=== PATIENT | male | born 1990 | race Caucasian/White ===

== ENCOUNTER 2024-01-12 19:08 | Emergency (ER) | payer OTHER, SELFPAY ==
[2024-01-12 19:10] VITALS: BP 133/101
--- NOTE | 2024-01-12 19:35 | ED.GENMED ---
History of Present Illness
General
Chief Complaint: Overdose Intentional
Source: patient and family
Exam Limitations: none
Time Seen by Provider: 01/12/24 19:24
Nursing documentation reviewed up to this point in time: agreed with
History of Present Illness
History of Present Illness:
33-year-old male history of substance use and mental health issues, noncompliant with his meds brought in today snorted 5 bags of heroin and attempt to harm himself, mother states he has been acting odd, denies any other coingestions, has been
admitted to rehab and mental health facilities previously
Past History
Past History
ED Past Medical History: Psychiatric (Anxiety narcotic use)
ED Past Surgical History: Orthopedic (tendon repair LUE)
Patient has exhibited threatening behavior?: No
Social History
Tobacco: Smoker
Alcohol: None
Drug: Former user and Narcotics
Personal: Single
Living: with family
Employment: Employed
Family History
Family History: Other (Reviewed and noncontributory)
Review of Systems
Review of Systems
All Other Systems: Not applicable
Constitutional: Denies fever or fatigue
Psychiatric: Reports suicidal
Phy Exam
Physical Exam
Physical Exam:
Physical Exam
General: Disheveled 33 male
Neck: No jaundice pupils 4 mm OU
Heart: Regular
Lungs: no acute respiratory distress.
Neuro: alert and oriented. no focal neurological deficits
Skin: no rash
Psychiatric: Flat affect
Extremities: no edema.
Course
Orders/Labs/Results
Orders:
Orders
01/12/24 19:33
Crisis Consult Urgent
Reason for Consult: OD suicidal, mother at bedside
Cardiac Monitoring- Treatment ONCE
Urine Drug Abuse Screen Urgent
01/12/24 19:42
Acetaminophen Urgent
Alcohol Urgent
Complete Blood Count/With Diff Urgent
Comprehensive Metabolic Panel Urgent
Salicylate Urgent
01/12/24 19:45
Lorazepam [Ativan] 1 mg PO NOW STA
01/12/24 21:14
Lorazepam [Ativan] 1 mg PO NOW STA
Abnormal Lab Results
01/12/24
19:42
MCH 31.8 H pg
(27.0-31.0)
MPV 10.7 H fL
(7.4-10.4)
Absolute Neuts (auto) 7.9 H 10^3/uL
(1.4-6.5)
Absolute Monos (auto) 0.7 H 10^3/uL
(0.1-0.6)
Neutrophils % 76.4 H %
(42.2-75.2)
Lymphocytes % 16.0 L %
(20.5-51.1)
Carbon Dioxide 21 L mmol/L
(22-30)
BUN 29 H mg/dl
(9-20)
Glucose 115 H mg/dl
(70-99)
Albumin 5.4 H g/dl
(3.5-5.0)
Salicylates < 1.0 L mg/dl
(2.0-20.0)
Acetaminophen < 10 L ug/ml
(10-30)
01/12/24 19:42
01/12/24 19:42
Vital Signs
Initial and Last Documented VS:
Initial Vital Signs
Temp Pulse Resp BP Pulse Ox
98.9 F 122 24 133/101 98
01/12/24 19:10 01/12/24 19:10 01/12/24 19:10 01/12/24 19:10 01/12/24 19:10
Last Documented Vital Signs
Temp Pulse Resp BP Pulse Ox
98.9 F 117 17 149/101 93
01/12/24 19:10 01/12/24 20:48 01/12/24 20:48 01/12/24 20:48 01/12/24 20:45
MDM/Problems Addressed
Differential Diagnosis Includes:
Overdose depression mental health crisis
MDM/Problems Addressed:
Overdose
Chronic conditions affecting care: Psychiatric illness
Acute Exacerbation and/or Progression of Chronic Illness: Psychiatric illness
*Pulse Oximetry
Patient hypoxic: no
*[employer] Interpretation
Rate: normal
Interpretation: normal
Heart Rate: 88
Rhythm: sinus
*Critical Care Note
Total Time (30-74mins, 75-104mins- exclusive of procedures): Not Applicable
Update Note
Update Note:
Update vital signs are stable since 3 and half hours after snorting heroin pupils are non-small will monitor here check screening blood work crisis has been consulted family has been updated
Update labs are noted patient voluntary under 201
ED Attending Note
-
Portions of this chart may have been created with voice recognition software.� Occasional wrong word or��sound alike� substitutions may have occurred due to the inherent limitations of voice recognition software.
Discharge Plan
Departure
Patient Disposition: Psych Facility
Date of Disposition: 01/12/24
Time of Disposition: 20:12
Condition: Fair
Discharge Problem:
Suicidal overdose
Prescriptions:
No Action
lorazepam [Ativan] 0.5 mg tablet
0.5 mg PO BID PRN (Reason: anxiety) Qty: 10 0RF
nicotine 14 mg/24 hr Patch 24 Hour
14 mg transdermal DAILY Qty: 0 0RF
pantoprazole 40 mg Tablet,Delayed Release (Dr/Ec)
40 mg PO DAILY Qty: 30 0RF
folic acid 1 mg Tablet
1 mg PO DAILY Qty: 0 0RF
olanzapine 5 mg Tablet,Disintegrating
2.5 mg PO DAILY Qty: 30 0RF
olanzapine 5 mg Tablet,Disintegrating
5 mg PO HS Qty: 30 0RF
buprenorphine-naloxone [Suboxone] 8-2 mg film
1 film buccal DAILY Qty: 7 0RF
quetiapine [Seroquel] 300 mg tablet
300 mg PO HS Qty: 10 0RF
lorazepam [Ativan] 1 mg tablet
1 mg PO TID PRN (Reason: anxiety) Qty: 14 0RF
Interventions
Interventions:
*Risk Screen - Suicide Last Done: 01/12/24 19:32
*General Assessment Last Done: 01/12/24 19:32
*Neglect/Abuse Screening Last Done: 01/12/24 19:32
*ED COVID-19 Vaccine History Last Done: 01/12/24 19:32
ED- Cardiac Assessment Last Done: 01/12/24 19:29
ED- Neurological Assessment Last Done: 01/12/24 19:29
ED-Psychological Assessment Last Done: 01/12/24 19:29
ED- Pulmonary Assessment Last Done: 01/12/24 19:29
Discharge Date and Time
Print Language: ICELANDIC
[2024-01-12] MEDS: ATIVAN 1 MG PO ×2 (19:48→21:22)
[2024-01-12 19:55] LABS: % Basophils 0.4 % (0-2); % Eosinophils 0.4 % (0-6); % Immature Granulocytes 0.2 % (0-0.5); % Monocytes 6.6 % (1.7-9.3); % Neutrophils 76.4 % (42.2-75.2); Absolute Lymphocytes 1.6 10^3/uL (1.2-3.4); Absolute Monocytes 0.7 10^3/uL (0.1-0.6); Absolute Neutrophils 7.9 10^3/uL (1.4-6.5); Hemoglobin 17.4 g/dL (13.0-18.0); Mean Corp Hgb Conc. 36.3 g/dL (33.0-37.0); Mean Corpuscular Hgb 31.8 pg (27.0-31.0); Mean Corpuscular Volume 87.6 fL (80.0-94.0); Mean Platelet Volume 10.7 fL (7.4-10.4); Nucleated Red Blood Cells % 0 % (-); Platelet Count 321 10^3/uL (130-400); Red Blood Cell Count 5.48 10^6/uL (4.70-6.10); Red Cell Dist. Width 12.7 % (11.5-14.5); White Blood Cell Count 10.3 10^3/uL (4.8-10.8)
[2024-01-12 20:09] LABS: ALT (SGPT) 23 U/L (0-50); AST (SGOT) 29 U/L (17-59); Acetaminophen < 10 ug/ml (10-30); Albumin 5.4 g/dl (3.5-5.0); Alcohol None Detected; Alkaline Phosphatase 76 U/L (38-126); Blood Urea Nitrogen 29 mg/dl (9-20); Calcium 10.2 mg/dl (8.4-10.2); Carbon Dioxide 21 mmol/L (22-30); Chloride 105 mmol/L (98-107); Glucose 115 mg/dl (70-99); Salicylate < 1.0 mg/dl (2.0-20.0); Sodium 141 mmol/L (135-145); Total Bilirubin 1.3 mg/dl (0.2-1.3); Total Protein 8.2 g/dl (6.3-8.2); eGFR > 60.00
[2024-01-12 20:48] VITALS: BP 149/101
[2024-01-12 21:00] VITALS: BP 146/103
[2024-01-12 22:00] VITALS: BP 141/100
--- NOTE | 2024-01-12 23:00 | ED.GENMED ---
History of Present Illness
General
Chief Complaint: Overdose Intentional
Time Seen by Provider: 01/12/24 19:24
Past History
Past History
ED Past Medical History: Psychiatric (Anxiety narcotic use)
ED Past Surgical History: Orthopedic (tendon repair LUE)
Patient has exhibited threatening behavior?: No
Social History
Tobacco: Smoker
Alcohol: None
Drug: Former user and Narcotics
Personal: Single
Living: with family
Employment: Employed
Family History
Family History: Other (Reviewed and noncontributory)
Course
Orders/Labs/Results
Orders:
Orders
01/12/24 19:33
Crisis Consult Urgent
Reason for Consult: OD suicidal, mother at bedside
Cardiac Monitoring- Treatment ONCE
Urine Drug Abuse Screen Urgent
01/12/24 19:42
Acetaminophen Urgent
Alcohol Urgent
Complete Blood Count/With Diff Urgent
Comprehensive Metabolic Panel Urgent
Salicylate Urgent
01/12/24 19:45
Lorazepam [Ativan] 1 mg PO NOW STA
01/12/24 21:14
Lorazepam [Ativan] 1 mg PO NOW STA
Abnormal Lab Results
01/12/24
19:42
MCH 31.8 H pg
(27.0-31.0)
MPV 10.7 H fL
(7.4-10.4)
Absolute Neuts (auto) 7.9 H 10^3/uL
(1.4-6.5)
Absolute Monos (auto) 0.7 H 10^3/uL
(0.1-0.6)
Neutrophils % 76.4 H %
(42.2-75.2)
Lymphocytes % 16.0 L %
(20.5-51.1)
Carbon Dioxide 21 L mmol/L
(22-30)
BUN 29 H mg/dl
(9-20)
Glucose 115 H mg/dl
(70-99)
Albumin 5.4 H g/dl
(3.5-5.0)
Salicylates < 1.0 L mg/dl
(2.0-20.0)
Acetaminophen < 10 L ug/ml
(10-30)
01/12/24 19:42
01/12/24 19:42
Vital Signs
Initial and Last Documented VS:
Initial Vital Signs
Temp Pulse Resp BP Pulse Ox
98.9 F 122 24 133/101 98
01/12/24 19:10 01/12/24 19:10 01/12/24 19:10 01/12/24 19:10 01/12/24 19:10
Last Documented Vital Signs
Temp Pulse Resp BP Pulse Ox
98.9 F 112 14 141/100 94
01/12/24 19:10 01/12/24 22:45 01/12/24 22:45 01/12/24 22:00 01/12/24 22:45
Update Note
Update Note:
2300 patient stable. Patient is cleared for inpatient psychiatric care
ED Attending Note
-
Portions of this chart may have been created with voice recognition software.� Occasional wrong word or��sound alike� substitutions may have occurred due to the inherent limitations of voice recognition software.
Discharge Plan
Departure
Patient Disposition: Psych Facility
Date of Disposition: 01/12/24
Time of Disposition: 20:12
Condition: Fair
Discharge Problem:
Suicidal overdose
Prescriptions:
No Action
lorazepam [Ativan] 0.5 mg tablet
0.5 mg PO BID PRN (Reason: anxiety) Qty: 10 0RF
nicotine 14 mg/24 hr Patch 24 Hour
14 mg transdermal DAILY Qty: 0 0RF
pantoprazole 40 mg Tablet,Delayed Release (Dr/Ec)
40 mg PO DAILY Qty: 30 0RF
folic acid 1 mg Tablet
1 mg PO DAILY Qty: 0 0RF
olanzapine 5 mg Tablet,Disintegrating
2.5 mg PO DAILY Qty: 30 0RF
olanzapine 5 mg Tablet,Disintegrating
5 mg PO HS Qty: 30 0RF
buprenorphine-naloxone [Suboxone] 8-2 mg film
1 film buccal DAILY Qty: 7 0RF
quetiapine [Seroquel] 300 mg tablet
300 mg PO HS Qty: 10 0RF
lorazepam [Ativan] 1 mg tablet
1 mg PO TID PRN (Reason: anxiety) Qty: 14 0RF
Interventions
Interventions:
*Risk Screen - Suicide Last Done: 01/12/24 19:32
*General Assessment Last Done: 01/12/24 19:32
*Neglect/Abuse Screening Last Done: 01/12/24 19:32
*ED COVID-19 Vaccine History Last Done: 01/12/24 19:32
ED- Cardiac Assessment Last Done: 01/12/24 19:29
ED- Neurological Assessment Last Done: 01/12/24 19:29
ED-Psychological Assessment Last Done: 01/12/24 19:29
ED- Pulmonary Assessment Last Done: 01/12/24 19:29
Discharge Date and Time
Print Language: LITHUANIAN
[2024-01-13] MEDS: ATIVAN 2 MG IM (00:10)
[2024-01-13] MEDS: NICODERM TRANSDERMAL 14 MG TRANSDERM (00:44)
[2024-01-13] MEDS: HALDOL 5 MG IM (00:52)
--- NOTE | 2024-01-13 02:00 | ED.CRISIS ---
ED Crisis Note
ED Crisis Note
Subjective:
called to room as pt was becoming agitated. did not want to move rooms
Objective:
awake and alert. somewhat agitated.
Assessment/Plan:
Patient was verbally de-escalated and did agree to Haldol and Ativan. Nicotine patch. Transferred to room 35. Being evaluated by crisis
[2024-01-13 03:03] VITALS: BP 140/96
[2024-01-13 03:48] LABS: Amphetamines Positive (Negative); Barbiturates Negative (Negative); Benzodiazepines Positive (Negative); Buprenorphine Positive (Negative); Cocaine Negative (Negative); Marijuana Negative (Negative); Methadone Negative (Negative); Methamphetamines Positive (Negative); Opiates Negative (Negative); Phencyclidine Negative (Negative); Tricyclic Antidepressants Negative (Negative)
[2024-01-13 03:59] LABS: Fentanyl, Urine Positive (Negative)
[2024-01-13 07:23] VITALS: BP 126/90
[2024-01-13] MEDS: ATIVAN 1 MG PO (07:36)
[2024-01-13] MEDS: NICODERM TRANSDERMAL 21 MG TRANSDERM (10:13)
--- NOTE | 2024-01-13 10:30 | EDRN ---
I checked both arms and chest for nicoderm patch that was applied at midnight- I could not findthis. Pharmacy aware.
== END 2024-01-13 12:17 ==
LOC: EMR 19:08
PROVIDERS: EMERGENCY PHYSICIAN Emergency Medicine; FAMILY PHYSICIAN Emergency Medicine
DX: T50.902A Poisoning by unspecified drugs, medicaments and biological substances, intentional self-harm, initial encounter (principal); Y92.9 Unspecified place or not applicable
CPT/HCPCS: 99283; 96372; 80053; 80143; 80179; 80306; 80307; 82077; 85025

== ENCOUNTER 2024-01-18 15:16 | Emergency (ER) | payer OTHER, SELFPAY ==
[2024-01-18 15:19] VITALS: BP 162/113
[2024-01-18 15:37] LABS: % Basophils 0.6 % (0-2); % Eosinophils 3.3 % (0-6); % Immature Granulocytes 0.3 % (0-0.5); % Lymphocytes 17.6 % (20.5-51.1); % Monocytes 8.8 % (1.7-9.3); % Neutrophils 69.4 % (42.2-75.2); Absolute Eosinophils 0.2 10^3/uL (0-0.7); Absolute Lymphocytes 1.2 10^3/uL (1.2-3.4); Absolute Monocytes 0.6 10^3/uL (0.1-0.6); Absolute Neutrophils 4.9 10^3/uL (1.4-6.5); Hematocrit 39.1 % (39.0-52.0); Hemoglobin 14.5 g/dL (13.0-18.0); Mean Corp Hgb Conc. 37.1 g/dL (33.0-37.0); Mean Corpuscular Hgb 31.4 pg (27.0-31.0); Mean Corpuscular Volume 84.6 fL (80.0-94.0); Mean Platelet Volume 10.4 fL (7.4-10.4); Nucleated Red Blood Cells % 0 % (-); Platelet Count 266 10^3/uL (130-400); Red Blood Cell Count 4.62 10^6/uL (4.70-6.10)
[2024-01-18 15:59] LABS: Lactic Acid 0.7 mmol/L (0.7-2.0)
[2024-01-18 16:02] LABS: ALT (SGPT) 16 U/L (0-50); AST (SGOT) 28 U/L (17-59); Albumin 4.4 g/dl (3.5-5.0); Alkaline Phosphatase 67 U/L (38-126); Blood Urea Nitrogen 17 mg/dl (9-20); Calcium 9.2 mg/dl (8.4-10.2); Carbon Dioxide 26 mmol/L (22-30); Chloride 102 mmol/L (98-107); Glucose 129 mg/dl (70-99); Sodium 140 mmol/L (135-145); Total Bilirubin 0.9 mg/dl (0.2-1.3); Total Protein 7.1 g/dl (6.3-8.2); eGFR > 60.00
--- NOTE | 2024-01-18 16:17 | ED.GENMED ---
History of Present Illness
General
Chief Complaint: Skin Problem
Source: patient
Exam Limitations: none
Time Seen by Provider: 01/18/24 16:10
Nursing documentation reviewed up to this point in time: agreed with
Past History
Past History
ED Past Medical History: Psychiatric (Anxiety narcotic use)
ED Past Surgical History: Orthopedic (tendon repair LUE)
Patient has exhibited threatening behavior?: No
Social History
Tobacco: Smoker
Alcohol: None
Drug: Former user and Narcotics
Personal: Single
Living: with family
Employment: Employed
Family History
Family History: Other (Reviewed and noncontributory)
Course
Orders/Labs/Results
Orders:
Orders
01/18/24 15:31
CMP [Comprehensive Metabolic Panel] Urgent
Complete Blood Count/With Diff Urgent
Lactate Level [Lactic Acid] Urgent
Abnormal Lab Results
01/18/24
15:31
RBC 4.62 L 10^6/uL
(4.70-6.10)
MCH 31.4 H pg
(27.0-31.0)
MCHC 37.1 H g/dL
(33.0-37.0)
Lymphocytes % 17.6 L %
(20.5-51.1)
Glucose 129 H mg/dl
(70-99)
01/18/24 15:31
01/18/24 15:31
Vital Signs
Initial and Last Documented VS:
Initial Vital Signs
Temp Pulse Resp BP Pulse Ox
98.3 F 97 20 162/113 96
01/18/24 15:19 01/18/24 15:19 01/18/24 15:19 01/18/24 15:19 01/18/24 15:19
Last Documented Vital Signs
Temp Pulse Resp BP Pulse Ox
98.3 F 97 20 162/113 96
01/18/24 15:19 01/18/24 15:19 01/18/24 15:19 01/18/24 15:19 01/18/24 15:19
ED Attending Note
-
Portions of this chart may have been created with voice recognition software.� Occasional wrong word or��sound alike� substitutions may have occurred due to the inherent limitations of voice recognition software.
Discharge Plan
Departure
Prescriptions:
No Action
lorazepam [Ativan] 0.5 mg tablet
0.5 mg PO BID PRN (Reason: anxiety) Qty: 10 0RF
nicotine 14 mg/24 hr Patch 24 Hour
14 mg transdermal DAILY Qty: 0 0RF
pantoprazole 40 mg Tablet,Delayed Release (Dr/Ec)
40 mg PO DAILY Qty: 30 0RF
folic acid 1 mg Tablet
1 mg PO DAILY Qty: 0 0RF
olanzapine 5 mg Tablet,Disintegrating
2.5 mg PO DAILY Qty: 30 0RF
olanzapine 5 mg Tablet,Disintegrating
5 mg PO HS Qty: 30 0RF
buprenorphine-naloxone [Suboxone] 8-2 mg film
1 film buccal DAILY Qty: 7 0RF
quetiapine [Seroquel] 300 mg tablet
300 mg PO HS Qty: 10 0RF
lorazepam [Ativan] 1 mg tablet
1 mg PO TID PRN (Reason: anxiety) Qty: 14 0RF
Interventions
Interventions:
*Risk Screen - Suicide Last Done: 01/18/24 15:19
*General Assessment Last Done: 01/18/24 15:19
*Neglect/Abuse Screening Last Done: 01/18/24 15:19
Discharge Date and Time
Print Language: SETSWANA
[2024-01-18] MEDS: CLEOCIN 300 MG PO (17:35)
[2024-01-18] MEDS: TYLENOL 650 MG PO (17:36)
[2024-01-18] MEDS: MOTRIN 600 MG PO (17:37)
[2024-01-18 18:09] VITALS: BP 155/107
--- NOTE | 2024-01-18 18:14 | ED.GENMED ---
Addendum entered and electronically signed by Virgen Valverde PA-C 01/19/24 10:08:
this patient's father placed a consult via [facility] [place] for placement for rehab but pt did not wish to go to rehab.
he was discharged with resources.
Original Note:
History of Present Illness
General
Chief Complaint: Skin Problem
Source: patient
Exam Limitations: none
Time Seen by Provider: 01/18/24 16:10
Nursing documentation reviewed up to this point in time: agreed with
History of Present Illness
History of Present Illness:
33 Y/O m
h/o drug abuse
mental illness
was just at a psychiatric facility for a week and says 5 days ago he started with a bump in his dos santos mustache and it has gotten bigger, opened, and drained some pus
he has swollen upper lip
no fever/chills
no h/o MRSA
no vomiting
Past History
Past History
ED Past Medical History: Psychiatric (Anxiety narcotic use)
ED Past Surgical History: Orthopedic (tendon repair LUE)
Patient has exhibited threatening behavior?: No
Social History
Tobacco: Smoker
Alcohol: None
Drug: Former user and Narcotics
Personal: Single
Living: with family
Employment: Employed
Family History
Family History: Other (Reviewed and noncontributory)
Review of Systems
Review of Systems
Allergies reviewed?: Yes
All Other Systems: Not applicable
Phy Exam
Physical Exam
Physical Exam:
GENERAL: Alert , anxious
ENT: o/p clr, mmm.
no inner mouth lesions
CARDIAC: Regular rate and rhythm .
LUNGS: Clear breath sounds bilaterally, no acute respiratory distress, no wheezes/rales/rhonchi
NEUROLOGICAL: Alert and oriented, no focal neuro deficits
SKIN: Warm and dry,
pt has swelling pustule skin above right upper lip in the facial hair furuncle with some STS extending to the upper lip
in side mouth is normal
the induraction around the pustule is approx 3 cm x 2 cm
PSYCH: Normal and appropriate interaction.
Course
Orders/Labs/Results
Orders:
Orders
01/18/24 15:31
CMP [Comprehensive Metabolic Panel] Urgent
Complete Blood Count/With Diff Urgent
Lactate Level [Lactic Acid] Urgent
01/18/24 16:54
Clindamycin HCl [Cleocin] 300 mg PO NOW STA
01/18/24 17:28
Acetaminophen [Tylenol] 650 mg PO NOW STA
Ibuprofen [Motrin] 600 mg PO NOW STA
01/18/24 17:41
Wound Culture [Wound/Abscess/Other Culture] Urgent
ANNIE Source: Abscess
Specimen Description:
Date Specimen was Collected: 01/18/24
Time Specimen was Collected: 17:26
Abnormal Lab Results
01/18/24
15:31
RBC 4.62 L 10^6/uL
(4.70-6.10)
MCH 31.4 H pg
(27.0-31.0)
MCHC 37.1 H g/dL
(33.0-37.0)
Lymphocytes % 17.6 L %
(20.5-51.1)
Glucose 129 H mg/dl
(70-99)
01/18/24 15:31
01/18/24 15:31
Vital Signs
Initial and Last Documented VS:
Initial Vital Signs
Temp Pulse Resp BP Pulse Ox
98.3 F 97 20 162/113 96
01/18/24 15:19 01/18/24 15:19 01/18/24 15:19 01/18/24 15:19 01/18/24 15:19
Last Documented Vital Signs
Temp Pulse Resp BP Pulse Ox
98.3 F 82 20 155/107 96
01/18/24 15:19 01/18/24 18:09 01/18/24 15:19 01/18/24 18:09 01/18/24 15:19
Procedures
Incision/Drainage/Joint Aspiration
Right Face:
Anethesia: 1% Lidocaine with Epi
Preparation: cleaned with Betadine
Type of procedure: incise and drain
Nature of site: abscess
Description of abscess: less than 3cm
Loculations broken up: Yes
How much fluid was obtained?: small amount
Fluid description: purulent
Treatment: left open for drainage
MDM/Problems Addressed
Differential Diagnosis Includes:
facial abscess, cellulitis
MDM/Problems Addressed:
33 y/o M
drug abuse
psychiatric amdisssion recently
now with skin lesion within the hair of his mustache that appears like an abscess with cellulitis
mild to mod
no systemic sypmtoms
no immunecompromised state
draining with expression
opened the area up after anesthetizing with lidocaine with 11 blade approx 0.5 cm and squeezed pus out
cultured
clindamycin
appreciated labs
*Critical Care Note
Total Time (30-74mins, 75-104mins- exclusive of procedures): Not Applicable
ED Attending Note
-
Portions of this chart may have been created with voice recognition software.� Occasional wrong word or��sound alike� substitutions may have occurred due to the inherent limitations of voice recognition software.
Discharge Plan
Departure
Patient Disposition: Home (Routine Discharge)
Date of Disposition: 01/18/24
Time of Disposition: 17:27
Patient with high blood pressure during this ER visit?: Yes
Condition: Fair
Covid-19: Not Applicable
Discharge Problem:
Abscess of face
Instructions: BLOOD PRESSURE, Skin Abscess
Prescriptions:
New
clindamycin HCl 300 mg capsule
300 mg PO Q6H Qty: 40 0RF
No Action
lorazepam [Ativan] 0.5 mg tablet
0.5 mg PO BID PRN (Reason: anxiety) Qty: 10 0RF
nicotine 14 mg/24 hr Patch 24 Hour
14 mg transdermal DAILY Qty: 0 0RF
pantoprazole 40 mg Tablet,Delayed Release (Dr/Ec)
40 mg PO DAILY Qty: 30 0RF
folic acid 1 mg Tablet
1 mg PO DAILY Qty: 0 0RF
olanzapine 5 mg Tablet,Disintegrating
2.5 mg PO DAILY Qty: 30 0RF
olanzapine 5 mg Tablet,Disintegrating
5 mg PO HS Qty: 30 0RF
buprenorphine-naloxone [Suboxone] 8-2 mg film
1 film buccal DAILY Qty: 7 0RF
quetiapine [Seroquel] 300 mg tablet
300 mg PO HS Qty: 10 0RF
lorazepam [Ativan] 1 mg tablet
1 mg PO TID PRN (Reason: anxiety) Qty: 14 0RF
Referrals:
NONE,* [Family Provider] -
Activity Restrictions/Additional Instructions:
We sent a culture for the bacteria in the facial abscess. Please apply warm compresses several times a day to help this heal. Take clindamycin 4 times a day for 10 days.
Use a probiotic while on this medication. Monitor your symptoms closely for worsening swelling, fever, chills, pain etc. and return as needed. If the swelling gets worse he may need IV antibiotics or more extensive procedure.
Return for any concern
Interventions
Interventions:
*Risk Screen - Suicide Last Done: 01/18/24 15:19
*General Assessment Last Done: 01/18/24 15:19
*Neglect/Abuse Screening Last Done: 01/18/24 15:19
*Nursing Disposition Last Done: 01/18/24 18:09
ED-Skin Assessment Last Done: 09/03/24 18:09
Discharge Date and Time
Print Language: LAO
== END 2024-01-18 18:17 | disposition home or self-care (01) ==
LOC: EMR 15:16
PROVIDERS: Emergency Medicine; EMERGENCY PHYSICIAN Student in an Organized Health Care Education/Training Program
DX: L02.01 Cutaneous abscess of face (principal); F41.9 Anxiety disorder, unspecified; F17.200 Nicotine dependence, unspecified, uncomplicated
CPT/HCPCS: 99283; 10060; 80053; 83605; 85025; 87070; 87147; 87186; 87205

== ENCOUNTER 2024-01-19 09:59 | Emergency (ER) | payer OTHER, SELFPAY ==
[2024-01-19 10:00] VITALS: BP 161/100
--- NOTE | 2024-01-19 10:31 | ED.GENMED ---
History of Present Illness
<Virgen Valverde PA-C - Last Filed: 01/19/24 12:30>
General
Chief Complaint: Skin Problem
Source: patient
Exam Limitations: none
Time Seen by Provider: 01/19/24 10:14
Nursing documentation reviewed up to this point in time: agreed with
History of Present Illness
History of Present Illness:
33 y/o M with h/o mental illness, drug abuse
here yesterday for right upper lip area swelling/abscess within facial hair that was draining some purulence
it was indurated and swollen
pt had no systemic symptoms
he had normal wbc
the area where it was pustule was opened with a 11 blade by me and drained moderate amount of pus, left open without packing, encouraged warm compresses
given IV clinda
d/c home with oral clinda
pt says that he had 2 doses of clidna but today feels his jaw is locking from side to side and also that his right upper lip is numb
he has not had any fever, chills
no systemic symptoms
there is still some drainage with expression
the swellign does not look worse than yesterday
able to open jaw
no chronic jaw issues
Past History
<Virgen Valverde PA-C - Last Filed: 01/19/24 12:30>
Past History
ED Past Medical History: Psychiatric (Anxiety narcotic use)
ED Past Surgical History: Orthopedic (tendon repair LUE)
Patient has exhibited threatening behavior?: No
Social History
Tobacco: Smoker
Alcohol: None
Drug: Former user and Narcotics
Personal: Single
Living: with family
Employment: Employed
Family History
Family History: Other (Reviewed and noncontributory)
Review of Systems
<Virgen Valverde PA-C - Last Filed: 01/19/24 12:30>
Review of Systems
Allergies reviewed?: Yes
All Other Systems: Not applicable
Phy Exam
<Virgen Valverde PA-C - Last Filed: 01/19/24 12:30>
Physical Exam
Physical Exam:
GENERAL: Alert , in no apparent distress
EYE: pupils equal and reactive
NECK: Supple
ENT: o/p clr'
moderate
CARDIAC: Regular rate and rhythm .
LUNGS: Clear breath sounds bilaterally, no acute respiratory distress, no wheezes/rales/rhonchi
ABDOMEN: Soft, without focal tenderness, no r/g, no cvat, normal bowel sounds
NEUROLOGICAL: Alert and oriented, no focal neuro deficits
SKIN: Warm and dry, skin intact.
MUSCULOSKELETAL: No edema, well perfused. neg gregg's sign
PSYCH: Normal and appropriate interaction.
Course
<Virgen Valverde PA-C - Last Filed: 01/19/24 12:30>
Orders/Labs/Results
Orders:
Orders
01/19/24 12:21
Ibuprofen [Motrin] 600 mg PO NOW STA
Vital Signs
Initial and Last Documented VS:
Initial Vital Signs
Temp Pulse Resp BP Pulse Ox
36.8 C 95 16 161/100 98
01/19/24 10:00 01/19/24 10:00 01/19/24 10:00 01/19/24 10:00 01/19/24 10:00
Last Documented Vital Signs
Temp Pulse Resp BP Pulse Ox
36.8 C 95 16 161/100 98
01/19/24 10:00 01/19/24 10:00 01/19/24 10:00 01/19/24 10:00 01/19/24 10:00
<Henry Miles MD - Last Filed: 01/19/24 12:29>
Orders/Labs/Results
Orders:
Orders
01/19/24 12:21
Ibuprofen [Motrin] 600 mg PO NOW STA
Vital Signs
Initial and Last Documented VS:
Initial Vital Signs
Temp Pulse Resp BP Pulse Ox
36.8 C 95 16 161/100 98
01/19/24 10:00 01/19/24 10:00 01/19/24 10:00 01/19/24 10:00 01/19/24 10:00
Last Documented Vital Signs
Temp Pulse Resp BP Pulse Ox
36.8 C 95 16 161/100 98
01/19/24 10:00 01/19/24 10:00 01/19/24 10:00 01/19/24 10:00 01/19/24 10:00
Procedures
<Virgen Valverde PA-C - Last Filed: 01/19/24 12:30>
Incision/Drainage/Joint Aspiration
Right Face:
Anethesia: 1% Lidocaine
Preparation: cleaned with soap & water
Type of procedure: incise
Nature of site: abscess
Description of abscess: less than 3cm
Loculations broken up: Yes
How much fluid was obtained?: scant amount
Fluid description: purulent and bloody
Treatment: left open for drainage
<FAN Laureano Last Filed: 01/19/24 12:30>
MDM/Problems Addressed
Differential Diagnosis Includes:
FACIAL ABSCESS, CELLULITIXS
MDM/Problems Addressed:
33 y/o M
here yesterday for right skin abscess within the facial hair of mustache causing lip swelling
no fever
had normal labs
i&D completed and drained some purulence which was coultured
today he says he feels numb/tingling of upper lip and some pain in his jaw
to me the swelling is improved slightly
he has not been doing compresses
there is still induration and tenderness to the upper lip
seen by ed attending who recommended shaving some of the hair and then unroofing the scab and extending the incision which i did
i was able to express some out
left open
warm compresses encouraged
apreciate elevated bp
pt asking for pain meds, has addiction history, on suboxone
motrin ordered;
<Virgen Valverde PA-C - Last Filed: 01/19/24 12:30>
*Critical Care Note
Total Time (30-74mins, 75-104mins- exclusive of procedures): Not Applicable
ED Attending Note
<Vigren Valverde PA-C - Last Filed: 01/19/24 12:30>
-
Portions of this chart may have been created with voice recognition software.� Occasional wrong word or��sound alike� substitutions may have occurred due to the inherent limitations of voice recognition software.
<Henry Miles MD - Last Filed: 01/19/24 12:29>
ED Attending Note
Patient seen and examined by attending physician: Yes
ED Attending Note:
I have seen and evaluated the patient with a pruc-ni-sbao encounter. I have spoken to the advance practicer provider and involved in the medical history, the physical exam, medical decision making.
Evaluation and management service: agree unless noted differently below.
Results interpretation: agree unless noted differently below.
Focused HPI: 33-year-old male with history as documented presents to the emergency room today for increased swelling and pain in the right upper lip. Was seen yesterday found to have abscess on the right upper lip which was incised and drained; he
was given dose of IV antibiotics and discharged on clindamycin and has had 2 doses since discharge. He says today he is having increasing pain and swelling also having some tingling in the area. Came back to have the area reassessed. No fevers or
chills.
Physical exam: Awake alert not in distress. Hypertensive otherwise normal vitals. He has an abscess on the upper lip which is scabbed over, indurated warm and tender to the touch�punctate area of the incision remains open and there is ulysses
purulent drainage
Medical Decision Making: Patient returns with right upper lip abscess�small incision made yesterday to drain abscess�attempt to use smallest incision possible given cosmetic area. Unfortunately scabbed over and now increasingly swollen once again.
Area cleaned, scab removed and incision extended cruciate incision by PA. Continue oral antibiotics. Stable for discharge. Close outpatient follow-up.
Discharge Plan
Departure
Patient Disposition: Home (Routine Discharge)
Date of Disposition: 01/19/24
Time of Disposition: 12:21
Patient with high blood pressure during this ER visit?: Yes
Condition: Fair
Covid-19: Not Applicable
Discharge Problem:
Abscess of face
Instructions: BLOOD PRESSURE, Skin Abscess
Prescriptions:
No Action
lorazepam [Ativan] 0.5 mg tablet
0.5 mg PO BID PRN (Reason: anxiety) Qty: 10 0RF
nicotine 14 mg/24 hr Patch 24 Hour
14 mg transdermal DAILY Qty: 0 0RF
pantoprazole 40 mg Tablet,Delayed Release (Dr/Ec)
40 mg PO DAILY Qty: 30 0RF
folic acid 1 mg Tablet
1 mg PO DAILY Qty: 0 0RF
olanzapine 5 mg Tablet,Disintegrating
2.5 mg PO DAILY Qty: 30 0RF
olanzapine 5 mg Tablet,Disintegrating
5 mg PO HS Qty: 30 0RF
buprenorphine-naloxone [Suboxone] 8-2 mg film
1 film buccal DAILY Qty: 7 0RF
quetiapine [Seroquel] 300 mg tablet
300 mg PO HS Qty: 10 0RF
lorazepam [Ativan] 1 mg tablet
1 mg PO TID PRN (Reason: anxiety) Qty: 14 0RF
clindamycin HCl 300 mg capsule
300 mg PO Q6H Qty: 40 0RF
Referrals:
NONE,* [Family Provider] -
Activity Restrictions/Additional Instructions:
WARM SOAKS 4-5 TIMES A DAY FOR 10 MIN AT A TIME WITH WASH CLOTH AND WARM WATER
TRY TO SQUEEZE OUT WHAT YOU CAN
TAKE THE CLINDAMYCIN 4 TIMES A DAY
TAKE MOTRIN EVERY 8HORUS FOR INFLAMMATION AND SWELLING
RETURN FOR AWORSENING SWELLING OR NAY CONCENRS.
Interventions
Interventions:
*Risk Screen - Suicide Last Done: 01/19/24 10:32
*General Assessment Last Done: 01/19/24 10:00
*Neglect/Abuse Screening Last Done: 01/19/24 10:32
ED- Fall Risk Assessment Last Done: 01/19/24 11:37
*ED COVID-19 Vaccine History Last Done: 01/19/24 10:00
*Nursing Disposition Last Done: 01/19/24 12:29
ED-Skin Assessment Last Done: 01/19/24 11:31
Discharge Date and Time
Print Language: SCOTTISH
[2024-01-19 12:22] VITALS: BMI 24.4
[2024-01-19] MEDS: MOTRIN 600 MG PO (12:24)
[2024-01-19 12:25] VITALS: BP 163/126
== END 2024-01-19 12:31 | disposition home or self-care (01) ==
LOC: EMR 09:59
PROVIDERS: EMERGENCY PHYSICIAN Emergency Medicine
DX: L02.01 Cutaneous abscess of face (principal); F41.9 Anxiety disorder, unspecified; F17.200 Nicotine dependence, unspecified, uncomplicated
CPT/HCPCS: 99282; 10060

== ENCOUNTER 2024-01-23 00:52 | Emergency (ER) | payer OTHER, SELFPAY ==
[2024-01-23 00:54] VITALS: BP 160/116
[2024-01-23 01:03] VITALS: BMI 24.1
--- NOTE | 2024-01-23 01:04 | ED.GENMED ---
History of Present Illness
General
Chief Complaint: Crisis Evaluation
Source: patient
Exam Limitations: none
Time Seen by Provider: 01/23/24 00:57
History of Present Illness
History of Present Illness:
33-year-old male presents for medical evaluation and clearance for psychiatric treatment. He is here voluntarily for a 'mental crisis.' He is accompanied by his mother. Sent to emergency room from the crisis department for medical clearance. He
was here couple days ago for an abscess on his face. He has been taking clindamycin. He notes improved symptoms no diarrhea chest pain cough abdominal pain fever or shortness of breath.
Past History
Past History
ED Past Medical History: Psychiatric (Anxiety narcotic use)
ED Past Surgical History: Orthopedic (tendon repair LUE)
Patient has exhibited threatening behavior?: No
Social History
Tobacco: Smoker
Alcohol: None
Drug: Former user and Narcotics
Personal: Single
Living: with family
Employment: Employed
Family History
Family History: Other (Reviewed and noncontributory)
Phy Exam
Physical Exam
Physical Exam:
General: Well-appearing but slightly anxious male no acute respiratory distress
HEENT: Normocephalic atraumatic
Heart: Regular rate rhythm no murmurs
Lungs: Clear no wheeze
Psychiatric: Guarded, flat affect cooperative seems to have good thought process
Ext: No cyanosis.
Course
Orders/Labs/Results
Orders:
Orders
01/23/24 01:04
Lorazepam [Ativan] 1 mg PO NOW STA
01/23/24 01:11
Alcohol Urgent
Basic Metabolic Panel Urgent
COVID-19 Antigen Urgent
Source: Nasal Swab
Complete Blood Count/With Diff Urgent
Fentanyl, Urine Urgent
Urine Drug Abuse Screen Urgent
Date Specimen was Collected: 01/23/24
Time Specimen was Collected: 00:57
Abnormal Lab Results
01/23/24
01:11
Plt Count 402 H D 10^3/uL
(130-400)
Ur Buprenorphine Positive H
(Negative)
01/23/24 01:11
01/23/24 01:11
Vital Signs
Initial and Last Documented VS:
Initial Vital Signs
Temp Pulse Resp BP Pulse Ox
98 F 74 22 160/116 98
01/23/24 00:54 01/23/24 00:54 01/23/24 00:54 01/23/24 00:54 01/23/24 00:54
Last Documented Vital Signs
Temp Pulse Resp BP Pulse Ox
98 F 74 22 160/116 98
01/23/24 00:54 01/23/24 00:54 01/23/24 00:54 01/23/24 00:54 01/23/24 00:54
MDM/Problems Addressed
Differential Diagnosis Includes:
Patient is anxious. Will provide 1 mg of p.o. Ativan. Suspect anxiety is driving the blood pressure up. Will check labs and COVID test. Patient is stable otherwise. I suspect he would be able to be discharged back to crisis upon return of labs
*Critical Care Note
Total Time (30-74mins, 75-104mins- exclusive of procedures): Not Applicable
Update Note
Update Note:
Labs reviewed without significant finding. Patient was given Ativan to help his anxiety. At this point patient is medically clear for psychiatric disposition. He will be discharged back to [facility]
ED Attending Note
-
Portions of this chart may have been created with voice recognition software.� Occasional wrong word or��sound alike� substitutions may have occurred due to the inherent limitations of voice recognition software.
Discharge Plan
Departure
Patient Disposition: [facility]
Date of Disposition: 01/23/24
Time of Disposition: 01:58
Patient with high blood pressure during this ER visit?: No
Discharge Problem:
Medical clearance for psychiatric admission
Prescriptions:
No Action
lorazepam [Ativan] 0.5 mg tablet
0.5 mg PO BID PRN (Reason: anxiety) Qty: 10 0RF
nicotine 14 mg/24 hr Patch 24 Hour
14 mg transdermal DAILY Qty: 0 0RF
pantoprazole 40 mg Tablet,Delayed Release (Dr/Ec)
40 mg PO DAILY Qty: 30 0RF
folic acid 1 mg Tablet
1 mg PO DAILY Qty: 0 0RF
olanzapine 5 mg Tablet,Disintegrating
2.5 mg PO DAILY Qty: 30 0RF
olanzapine 5 mg Tablet,Disintegrating
5 mg PO HS Qty: 30 0RF
buprenorphine-naloxone [Suboxone] 8-2 mg film
1 film buccal DAILY Qty: 7 0RF
quetiapine [Seroquel] 300 mg tablet
300 mg PO HS Qty: 10 0RF
lorazepam [Ativan] 1 mg tablet
1 mg PO TID PRN (Reason: anxiety) Qty: 14 0RF
clindamycin HCl 300 mg capsule
300 mg PO Q6H Qty: 40 0RF
Activity Restrictions/Additional Instructions:
Please seek further treatment through [facility]. Return if needed otherwise.
Interventions
Interventions:
*Risk Screen - Suicide Last Done: 01/23/24 01:03
*General Assessment Last Done: 01/23/24 01:03
*Neglect/Abuse Screening Last Done: 01/23/24 01:03
*ED COVID-19 Vaccine History Last Done: 01/23/24 01:03
ED-Psychological Assessment Last Done: 01/23/24 01:05
Discharge Date and Time
Print Language: MALTESE
[2024-01-23] MEDS: ATIVAN 1 MG PO (01:15)
[2024-01-23 01:21] LABS: % Basophils 0.7 % (0-2); % Eosinophils 2.6 % (0-6); % Immature Granulocytes 0.2 % (0-0.5); % Lymphocytes 25.4 % (20.5-51.1); % Monocytes 4.8 % (1.7-9.3); % Neutrophils 66.3 % (42.2-75.2); Absolute Basophils 0.1 10^3/uL (0-0.2); Absolute Eosinophils 0.2 10^3/uL (0-0.7); Absolute Lymphocytes 2.1 10^3/uL (1.2-3.4); Absolute Monocytes 0.4 10^3/uL (0.1-0.6); Absolute Neutrophils 5.4 10^3/uL (1.4-6.5); Hematocrit 44.5 % (39.0-52.0); Mean Corpuscular Hgb 30.5 pg (27.0-31.0); Mean Corpuscular Volume 84.8 fL (80.0-94.0); Nucleated Red Blood Cells % 0 % (-); Platelet Count 402 10^3/uL (130-400); Red Blood Cell Count 5.25 10^6/uL (4.70-6.10); White Blood Cell Count 8.1 10^3/uL (4.8-10.8)
[2024-01-23 01:32] LABS: Amphetamines Negative (Negative); Barbiturates Negative (Negative); Benzodiazepines Negative (Negative); Buprenorphine Positive (Negative); Cocaine Negative (Negative); Marijuana Negative (Negative); Methadone Negative (Negative); Methamphetamines Negative (Negative); Opiates Negative (Negative); Phencyclidine Negative (Negative); Tricyclic Antidepressants Negative (Negative)
[2024-01-23 01:34] LABS: Blood Urea Nitrogen 16 mg/dl (9-20); Calcium 9.8 mg/dl (8.4-10.2); Carbon Dioxide 23 mmol/L (22-30); Chloride 104 mmol/L (98-107); Estimated Creatinine Clearance 114 ml/min; Glucose 98 mg/dl (70-99); Potassium 4.3 mmol/L (3.5-5.1); Sodium 142 mmol/L (135-145); eGFR > 60.00
[2024-01-23 01:35] LABS: Alcohol None Detected; COVID-19 Antigen Negative (Negative)
[2024-01-23 01:52] LABS: Fentanyl, Urine Negative (Negative)
[2024-01-23 02:04] VITALS: BP 106/79
== END 2024-01-23 02:15 ==
LOC: EMR 00:52
PROVIDERS: Physician Assistant; EMERGENCY PHYSICIAN Emergency Medicine
DX: Z13.39 Encounter for screening examination for other mental health and behavioral disorders (principal); F41.9 Anxiety disorder, unspecified; Z11.52 Encounter for screening for COVID-19; F17.200 Nicotine dependence, unspecified, uncomplicated
CPT/HCPCS: 99283; 80048; 80306; 80307; 82077; 85025; 87811

== ENCOUNTER 2024-04-20 16:39 | Emergency (ER) | payer OTHER, SELFPAY ==
[2024-04-20 16:40] VITALS: BP 163/112
--- NOTE | 2024-04-20 16:42 | ED.GENMED ---
ED Provider Triage
<Travis Miller PA-C - Last Filed: 04/20/24 16:48>
-
Patient seen by provider in Triage?: Seen in Triage
Attestation: A medical screening examination has been initiated by a qualified medical provider. Based on the assessment performed at this time, it has been determined that an emergent medical condition may exist and the patient has been informed
that further medical evaluation and possible additional diagnostic testing may be needed.
HPI: 34 year old male presenting for evaluation sweating/palpitations. Discharged from [facility] after being diagnosed with Major Depressive Disorder. This morning drank 3 cups of coffee and an energy drink. Since then has been having palpitations
and feeling unwell.
GENERAL: Alert , in no apparent distress
EYE: No visual abnormalities.
NECK: Trachea midline
ENT: No visible abnormalities.
LUNGS: No acute respiratory distress
NEUROLOGICAL: Alert and oriented
SKIN: Skin intact. No visible changes.
MUSCULOSKELETAL: Moving extremities normally
PSYCH: Normal and appropriate interaction.
This is a medical evaluation conducted in person to initiate diagnostic evaluation and provide initial therapeutics. Please see further documentation by the treating clinician.
History of Present Illness
<Travis Miller PA-C - Last Filed: 04/20/24 16:48>
General
Chief Complaint: Psychiatric Problem
Time Seen by Provider: 04/20/24 17:26
<Jorge A Choudhary PA-C - Last Filed: 04/20/24 17:41>
General
Source: patient
Exam Limitations: none
History of Present Illness
History of Present Illness:
34-year-old male with history of anxiety and depression presents with anxiety and difficulty sleeping. He states he is shaking. He wishes to speak with the crisis department. He is denying thoughts of harming himself or others. He really just
reiterates that he wants to talk to the crisis department. No other complaints at this time
Past History
<Travis Miller PA-C - Last Filed: 04/20/24 16:48>
Past History
ED Past Medical History: Psychiatric (Anxiety narcotic use)
ED Past Surgical History: Orthopedic (tendon repair LUE)
Patient has exhibited threatening behavior?: No
Social History
Tobacco: Smoker
Alcohol: None
Drug: Former user and Narcotics
Personal: Single
Living: with family
Employment: Employed
Family History
Family History: Other (Reviewed and noncontributory)
Phy Exam
<Jorge A Choudhary PA-C - Last Filed: 04/20/24 17:41>
Physical Exam
Physical Exam:
General: Well-appearing male no acute respiratory distress
Psychiatric exam: Flat affect admits anxiety and depression with tremors. He is denying thoughts of harming himself or others.
Heart: Regular rate and rhythm
Lungs: Clear
Course
<Travis Miller PA-C - Last Filed: 04/20/24 16:48>
Orders/Labs/Results
Orders:
Orders
04/20/24 16:47
Electrocardiogram (*1) Urgent
Reason for Study: Palpitations
EKG- Treatment ONCE
Basic Metabolic Panel Urgent
Complete Blood Count/With Diff Urgent
Vital Signs
Initial and Last Documented VS:
Initial Vital Signs
Temp Pulse Resp BP Pulse Ox
98.0 F 92 16 163/112 98
04/20/24 16:40 04/20/24 16:40 04/20/24 16:40 04/20/24 16:40 04/20/24 16:40
Last Documented Vital Signs
Temp Pulse Resp BP Pulse Ox
98.0 F 92 16 163/112 98
04/20/24 16:40 04/20/24 16:40 04/20/24 16:40 04/20/24 16:40 04/20/24 16:40
<Jorge A Choudhary PA-C - Last Filed: 04/20/24 17:41>
Orders/Labs/Results
Orders:
Orders
04/20/24 16:47
Electrocardiogram (*1) Urgent
Reason for Study: Palpitations
EKG- Treatment ONCE
Basic Metabolic Panel Urgent
Complete Blood Count/With Diff Urgent
Vital Signs
Initial and Last Documented VS:
Initial Vital Signs
Temp Pulse Resp BP Pulse Ox
98.0 F 92 16 163/112 98
04/20/24 16:40 04/20/24 16:40 04/20/24 16:40 04/20/24 16:40 04/20/24 16:40
Last Documented Vital Signs
Temp Pulse Resp BP Pulse Ox
98.0 F 92 16 163/112 98
04/20/24 16:40 04/20/24 16:40 04/20/24 16:40 04/20/24 16:40 04/20/24 16:40
<Jorge A Choudhary PA-C - Last Filed: 04/20/24 17:41>
MDM/Problems Addressed
Differential Diagnosis Includes:
Patient is alert cooperative not overtly intoxicated and requesting to speak with the crisis department. He is denying thoughts of harming himself or others. Will send him to the crisis department for further evaluation
<Jorge A Choudhary PA-C - Last Filed: 04/20/24 17:41>
*Critical Care Note
Total Time (30-74mins, 75-104mins- exclusive of procedures): Not Applicable
ED Attending Note
<Travis Miller PA-C - Last Filed: 04/20/24 16:48>
-
Portions of this chart may have been created with voice recognition software.� Occasional wrong word or��sound alike� substitutions may have occurred due to the inherent limitations of voice recognition software.
Discharge Plan
Departure
Patient Disposition: [facility]
Date of Disposition: 04/20/24
Time of Disposition: 17:40
Patient with high blood pressure during this ER visit?: No
Discharge Problem:
Anxiety
Prescriptions:
No Action
lorazepam [Ativan] 0.5 mg tablet
0.5 mg PO BID PRN (Reason: anxiety) Qty: 10 0RF
nicotine 14 mg/24 hr Patch 24 Hour
14 mg transdermal DAILY Qty: 0 0RF
pantoprazole 40 mg Tablet,Delayed Release (Dr/Ec)
40 mg PO DAILY Qty: 30 0RF
folic acid 1 mg Tablet
1 mg PO DAILY Qty: 0 0RF
olanzapine 5 mg Tablet,Disintegrating
2.5 mg PO DAILY Qty: 30 0RF
olanzapine 5 mg Tablet,Disintegrating
5 mg PO HS Qty: 30 0RF
buprenorphine-naloxone [Suboxone] 8-2 mg film
1 film buccal DAILY Qty: 7 0RF
quetiapine [Seroquel] 300 mg tablet
300 mg PO HS Qty: 10 0RF
lorazepam [Ativan] 1 mg tablet
1 mg PO TID PRN (Reason: anxiety) Qty: 14 0RF
clindamycin HCl 300 mg capsule
300 mg PO Q6H Qty: 40 0RF
Referrals:
UNKNOWN - PT DOES,NOT KNOW [Family Provider] -
Activity Restrictions/Additional Instructions:
Please seek further treatment at [facility] ([place], [place])
Interventions
Interventions:
*Risk Screen - Suicide Last Done: 04/20/24 16:40
*Neglect/Abuse Screening Last Done: 04/20/24 16:40
Discharge Date and Time
Print Language: DIVEHI
== END 2024-04-20 21:20 ==
LOC: EMR 16:39
PROVIDERS: EMERGENCY PHYSICIAN Emergency Medicine
DX: F41.9 Anxiety disorder, unspecified (principal); F32.9 Major depressive disorder, single episode, unspecified; F17.200 Nicotine dependence, unspecified, uncomplicated
CPT/HCPCS: 99283; 93005

== ENCOUNTER 2024-04-25 23:55 | Observation (INO) | payer OTHER, SELFPAY ==
[2024-04-25 18:18] VITALS: BP 123/88
[2024-04-25 18:36] LABS: % Basophils 0.7 % (0-2); % Eosinophils 2.8 % (0-6); % Immature Granulocytes 0.1 % (0-0.5); % Lymphocytes 26.5 % (20.5-51.1); % Monocytes 5.3 % (1.7-9.3); % Neutrophils 64.6 % (42.2-75.2); Absolute Basophils 0.1 10^3/uL (0-0.2); Absolute Eosinophils 0.2 10^3/uL (0-0.7); Absolute Lymphocytes 1.9 10^3/uL (1.2-3.4); Absolute Monocytes 0.4 10^3/uL (0.1-0.6); Absolute Neutrophils 4.6 10^3/uL (1.4-6.5); Hematocrit 46.6 % (39.0-52.0); Mean Corp Hgb Conc. 34.3 g/dL (33.0-37.0); Mean Corpuscular Volume 87.4 fL (80.0-94.0); Mean Platelet Volume 9.8 fL (7.4-10.4); Nucleated Red Blood Cells % 0 % (-); Platelet Count 265 10^3/uL (130-400); Red Blood Cell Count 5.33 10^6/uL (4.70-6.10); White Blood Cell Count 7.2 10^3/uL (4.8-10.8)
[2024-04-25 18:54] LABS: ALT (SGPT) 23 U/L (0-50); AST (SGOT) 27 U/L (17-59); Albumin 5.1 g/dl (3.5-5.0); Alkaline Phosphatase 57 U/L (38-126); Blood Urea Nitrogen 16 mg/dl (9-20); Calcium 9.7 mg/dl (8.4-10.2); Carbon Dioxide 23 mmol/L (22-30); Chloride 106 mmol/L (98-107); Glucose 100 mg/dl (70-99); Sodium 142 mmol/L (135-145); Total Bilirubin 0.6 mg/dl (0.2-1.3); Total Protein 7.9 g/dl (6.3-8.2); eGFR > 60.00
[2024-04-25 21:46] VITALS: BP 125/100
[2024-04-25] MEDS: LIDOCAINE 4% PATCH 1 PATCH TOPICAL (22:02)
[2024-04-25] MEDS: MOTRIN 400 MG PO (22:02)
--- NOTE | 2024-04-25 22:02 | ED.GENMED ---
History of Present Illness
General
Chief Complaint: Weakness
Source: patient
Exam Limitations: none
Time Seen by Provider: 04/25/24 20:11
Nursing documentation reviewed up to this point in time: agreed with
History of Present Illness
History of Present Illness:
Patient with history of anxiety and depression, discharged from inpatient treatment at [facility] 1 week ago after being admitted for 30 days, presents to ED secondary to upper extremity weakness with involuntary tremor, noted
shortly after being discharged from the hospital. Patient and his mother who is power of contracts attorney, are not sure if patient may be having withdrawal symptoms from discontinuing his psychiatric medications during recent hospitalization. Of note,
patient has had similar tremor in the past, thought to be secondary to some of the antipsychotic medications that he was taking. Denies difficulty with ambulation. Patient has had intermittent headache. Patient does also have chronic back and
neck pain. Denies fever or chills. Denies loss of appetite.
Past History
Past History
ED Past Medical History: Psychiatric (Anxiety narcotic use)
ED Past Surgical History: Orthopedic (tendon repair LUE)
Patient has exhibited threatening behavior?: No
Social History
Tobacco: Smoker
Alcohol: None
Drug: Former user and Narcotics
Personal: Single
Living: with family
Employment: Employed
Family History
Family History: Other (Reviewed and noncontributory)
Review of Systems
Review of Systems
Allergies reviewed?: Yes
All Other Systems: ROS reviewed and negative except as documented in HPI and ROS
Constitutional: Reports no symptoms
EENT: Reports no symptoms
Respiratory: Reports no symptoms
Cardiac: Reports no symptoms
ABD/GI: Reports no symptoms
: Reports no symptoms
Musculoskeletal: Reports no symptoms
Skin: Reports no symptoms
Neurological: Reports headache, weakness and other (tremor)
Phy Exam
Physical Exam
Physical Exam:
Physical Exam
General: no apparent distress, not acutely ill. afebrile
Head: nc/at. eomi
Neck: supple. no meningeal signs.
Heart: s1/s2 regular rate and rhythm, no murmur. equal radial pulses.
Lungs: no acute respiratory distress. clear bilaterally
Abdomen: normal bowel sounds. not tender.
Neuro: alert and oriented. no focal sensory/motor deficit. normal speech. resting, intermittent tremor of UE noted
Skin: no rash
Psychiatric: well kept. interactive and cooperative
Extremities: no edema. no calf tenderness.
Course
Orders/Labs/Results
Orders:
Orders
04/25/24 18:28
Complete Blood Count/With Diff Urgent
Comprehensive Metabolic Panel Urgent
04/25/24 21:57
Ibuprofen [Motrin] 400 mg PO NOW STA
Lidocaine [Lidocaine 4% Patch] 1 patch TOPICAL NOW STA
Apply Lidocaine patch(s) to:: back
04/25/24 22:04
CT Head W/o Iv Contrast Urgent
Comment:
Reason For Exam: UE weakness with involuntary movement
04/25/24 22:09
Lorazepam [Ativan] 1 mg PO NOW STA
04/25/24 23:00
Flush (0.9% Sodium Chloride) [Flush (Nss)] See Dose Instructions IV PER PROTOCOL
04/25/24 23:15
Nicotine [Nicoderm Transdermal] 21 mg TRANSDERM NOW STA
04/25/24 23:41
Admit/Transfer Patient As Directed
Co-Sign Provider:
Level of Care: Observation services
Assign to:: Medical/Surgical
Physician / Group: hospitalist
Diagnosis: weakness
PRN Pain Medication Management As Directed
May give lesser potent ordered pain med per pt: Yes
preference::
Protocol:: Medication orders for pain may be administered in a
manner that supports deferring to patient preference
when the pt is:
- Requesting an ordered lesser potent pain medication.
Least to most potent pain medications are defined
as: acetaminophen < NSAID < tramadol < opioids
(morphine, oxycodone, hydromorphone).
- Requesting a lesser dose of the same medication IF
ORDERED.
- Requesting a less intrusive route of administration
if both routes are prescribed by the provider (PO <
IV).
04/25/24 23:42
Code Status As Directed
Resuscitation Status: Full Code
04/26/24 01:00
Acetaminophen [Tylenol] 650 mg PO Q4HPRN PRN
Bisacodyl [Dulcolax] 10 mg RECTAL I83MGMB PRN
Docusate W/Senna [Senokot-S] 1 tablet PO BIDPRN PRN
Ibuprofen [Motrin] 400 mg PO Q6HPRN PRN
Polyethylene Glycol Powder [Miralax] 17 grams PO DAILYPRN PRN
04/26/24 01:00
Consult Notification Routine
Specialty to Notify: Neurology
Consult Notification Routine
Specialty to Notify: Psychiatry
NEUROLOGY CONSULT Routine
Consulting Provider: Ruchi Benoit
Was physician already notified: No
Reason for consult: tremors with alyson upper ext weakness
PSYCHIATRY CONSULT Routine
Consulting Provider: Lana Mcmillan
Was physician already notified: No
Reason for consult: recent d/c from inpt psych, med management
Urinalysis Reflex To Culture Routine
Urine Drug Abuse Screen Routine
MR Cervical Spine Without Routine
Comment:
Reason For Exam: alyson arm weakness, eval myelitis
Recent pill cam endoscopy?: No
MRI Brain [MR Brain Without Contrast] Routine
Comment:
Reason For Exam: altered mental status, weakness, eval ms
Recent pill cam endoscopy?: No
Activity As Directed
Activity Level: With Assistance
Vital Signs As Directed
Frequency: Per unit guidelines
DX Deep Vein Thrombosis Video Routine
04/26/24 Breakfast
Regular
At Your Request: Non-Participating
04/26/24 08:00
Venlafaxine Extended Release [Effexor Xr] 150 mg PO DAILY
Venlafaxine Extended Release [Effexor Xr] 75 mg PO DAILY
04/26/24 18:00
Enoxaparin Sodium [Lovenox] 40 mg SC QPM
04/26/24 22:00
Quetiapine Fumarate [Seroquel] 200 mg PO HS
Abnormal Lab Results
04/25/24
18:28
Glucose 100 H mg/dl
(70-99)
Albumin 5.1 H g/dl
(3.5-5.0)
04/25/24 18:28
04/25/24 18:28
Vital Signs
Initial and Last Documented VS:
Initial Vital Signs
Temp Pulse Resp BP Pulse Ox
98.0 F 104 16 123/88 97
04/25/24 18:18 04/25/24 18:18 04/25/24 18:18 04/25/24 18:18 04/25/24 18:18
Last Documented Vital Signs
Temp Pulse Resp BP Pulse Ox
97.6 F 56 18 138/91 98
04/26/24 01:07 04/26/24 01:07 04/26/24 01:07 04/26/24 01:07 04/26/24 01:33
MDM/Problems Addressed
MDM/Problems Addressed:
Patient with unclear etiology behind his presenting symptoms, i.e. upper extremity weakness along with involuntary tremor. Differential diagnosis include potential cervical spine involved versus medication effect versus withdrawal symptoms. CT
head: No acute findings. Patient will be admitted for further eval and treatment, including potential neurology and psychiatric evaluation, as well as MRI, cervical spine, if symptoms persist.
*Critical Care Note
Total Time (30-74mins, 75-104mins- exclusive of procedures): Not Applicable
ED Attending Note
-
Portions of this chart may have been created with voice recognition software.� Occasional wrong word or��sound alike� substitutions may have occurred due to the inherent limitations of voice recognition software.
Discharge Plan
Departure
Patient Disposition: Admit
Date of Disposition: 04/25/24
Time of Disposition: 23:05
Admit to: Med/Surg
Presentation/result/management discussed w/ accepting MD/DO: Hospitalist
Discharge Problem:
Involuntary movements, Weakness
Interventions
Interventions:
*Risk Screen - Suicide Last Done: 04/26/24 01:08
*General Assessment Last Done: 04/25/24 22:15
*Neglect/Abuse Screening Last Done: 04/25/24 22:14
ED- Fall Risk Assessment Last Done: 04/26/24 00:57
*ED COVID-19 Vaccine History Last Done: 04/26/24 01:08
*Nursing Disposition Last Done: 04/26/24 00:57
ED- Cardiac Assessment Last Done: 04/25/24 21:49
ED- Neurological Assessment Last Done: 04/25/24 21:20
ED-Psychological Assessment Last Done: 04/25/24 21:20
ED- Pulmonary Assessment Last Done: 04/25/24 21:49
Discharge Date and Time
Discharge Date/Time: 04/26/24 00:58
[2024-04-25] MEDS: ATIVAN 1 MG PO (22:12)
[2024-04-25 22:50] VITALS: BP 124/98
[2024-04-25] MEDS: NICODERM TRANSDERMAL 21 MG TRANSDERM (23:19)
--- NOTE | 2024-04-25 23:30 | HPS.HSE ---
Family Physician
-
Family Physician: NO INTERVIEW UNKNOWN
Chief Complaint
-
Bilateral upper extremity weakness and tremors, behavioral changes
History of Present Illness
This is a 34-year-old male with past medical history of anxiety depression and psychotic episodes who was discharged from inpatient [facility] 2 weeks ago and presents to the emergency department with 1 week of bilateral upper extremity tremors weakness
and decreased responsiveness per family.
Patient and family reported he has spent about 3 months at inpatient [facility]. During that time it had his medications tailored and changed. Specifically they reported that he was previously on Depakote and Clozaril which were discontinued and has
been on venlafaxine and at bedtime Seroquel about 2 weeks prior to his discharge from the inpatient [facility]. At time of discharge there were no apparent neurological abnormalities. And patient appeared to have improved in terms of mentation,
minimization of hallucinations. Since discharge the patient has otherwise been in usual state of health but developed this bilateral upper extremity tremors 1 week ago. He denied any numbness or tingling. He reports weakness and this is
demonstrated by inability to put on close over his head or put on his socks. He denies any new back pain. He denies any neck pain or stiffness. He has been no fevers or chills. He denies any urinary symptoms. He reports that he has been
compliant with his medications and denies any ingestions or recreational drugs.
In the emergency department, he was hemodynamically stable with a blood pressure of 125/100 pulse of 100 and oxygen saturation of 97% on room air. He was afebrile. CBC was completely within normal limits. LFTs BUN/creatinine and electrolytes were
all normal. CT of the head shows no acute abnormalities.
Medical History
Past Medical History
Past Medical History: Reports Other
Additional Past Medical History:
Depression anxiety
Psychotic episodes
Past Surgical History: Reports None
Social History
Tobacco: Former Smoker
Alcohol: None
Drug: None
Personal:
Living: Other ([facility])
Employment: Not Employed
Family History
Family History: Not pertinent
Allergies / Home Medications
Allergies reflects when Allergies were last updated in [employer].
Home Medications with original date entered in [employer]
Allergy/Medication List:
Allergies
Allergy/AdvReac Type Severity Reaction Status Date / Time
No Known Allergies Allergy Verified 04/25/24 18:22
Home Medications
quetiapine 200 mg tablet (Seroquel) 200 mg PO HS 04/25/24
venlafaxine 150 mg capsule,extended release 24 hr 150 mg PO DAILY 04/25/24
venlafaxine 75 mg capsule,extended release 24 hr 75 mg PO DAILY 04/25/24
Review of Systems
-
History Source: Patient and Family
Constitutional: Reports No Symptoms
EENT: Reports No Symptoms
Respiratory: Reports No Symptoms
Cardiac: Reports No Symptoms
Abdomen/GI: Reports No Symptoms
: Reports No Symptoms
Musculoskeletal: Reports No Symptoms
Skin: Reports No Symptoms
Neurological: Reports Weakness and Other (tremors)
Endocrine: Reports No Symptoms
Hematologic/Lymphatic: Reports No Symptoms
Psych: Reports No Symptoms
Physical Exam
Vital Signs
Vital Signs
Temp Pulse Resp BP Pulse Ox
98.0 F 104 16 125/100 97
04/25/24 18:18 04/25/24 18:18 04/25/24 18:18 04/25/24 21:46 04/25/24 18:18
Physical Exam
General: Well Developed, Well Nourished, No Apparent Distress and Comfortable
HEENT: NormoCephalic, Anicteric, Moist mucous membranes and Atraumatic
Respiratory: Clear
Cardiac: S1/S2 and Regular Rhythm
Breast: Deferred by me
GI: Soft, Non Tender, Non Distended and Normal Bowel Sounds
Rectal: Deferred by Provider
Genito-urinary: Deferred by me
Musculoskeletal: No Clubbing, No Cyanosis and No Edema
Skin: Warm
Neuro: AO x 3, No Motor Deficits, Cranial Nerves Intact, No Sensory Deficits and Tremors (bilateral upper extremity tremor, intermittent, noted with raised hands, no significant change with pointing.)
Hematologic/Lymphatic: No Lymphadenopathy
Psych: Calm
Laboratory Results
-
04/25/24 18:28
04/25/24 18:
Laboratory Results
Total Bilirubin 0.6 mg/dl (0.2-1.3) 04/25/24 18:28
AST 27 U/L (17-59) 04/25/24 18:
ALT 23 U/L (0-50) 04/25/24 18:
Alkaline Phosphatase 57 U/L (38-126) 04/25/24 18:
Data Reviewed
-
CT Scan: Report Reviewed by me
Lab Data: Labs Reviewed by me
Old Records: Reviewed
Impression/Plan
-
IMPRESSION:
Patient w/ h/o psychosis and recent inpatient psychiatric hospital stay with med changes presents to Ed with bilateral upper extremity tremors and weakness. My exam shows low amplitude tremors intermittently but no weakness. No focal tenderness of
the cervical or thoracic spine. Sensation, cerebellar testing intact. Alert and oriented. Has some slow movements without rigidity. No stiffeness. Currently denies hallucinations and elusions.
PLAN:
1. Tremors - Non-specific but possibly medication related. He was discontinued most recently on benzos/clozaril a few weeks ago and has been on quetiapine and venlafaxine. Possible side effect.
- admit to med/surg
- mri brain c-spine
- add on u/a urine tox
- will continue meds for now pending consults to avoid triggering an acute psychotic episode
- neuroconsult
2. Psych -
- med management consultation in setting of tremors on current meds
DVT PPX - lovenox sq
Code status - Full code
[2024-04-26 01:07] VITALS: BP 138/91
[2024-04-26 07:30] VITALS: BP 139/95
[2024-04-26] MEDS: EFFEXOR XR 75 MG PO (07:50)
[2024-04-26] MEDS: EFFEXOR XR 150 MG PO (07:50)
--- NOTE | 2024-04-26 09:00 | W.PN.NEURO.1 ---
Today's Communication / Plan
-
.
Subjective/Objective
Subjective Data
Date of Service: April 26, 2024
Requesting physician:Loreto Valerio MD
Reason for consultation: Tremors of upper extremities
Neurology Consultation Note.
HPI: This is a 34-year-old man who presented to [facility] on 04/25/2024 with a fall and abnormal movements.
Mr. Sinha reportedly has had intermittent action hand tremor, which began approximately two years ago. The tremors are predominantly in the hands, but the patient also reports difficulty with tasks involving eating, writing and ability to use a mouse
effectively.
The patient reports that his tremors worsen with anxiety. He has had worsening of his balance with no loss of consciousness or head trauma leading him to seek medical attention. The patient was reportedly switched from Clozaril to Seroquel around 2
weeks ago.
The patient consumes one cup of coffee daily .
ER VS: 123/88, 104, afebrile.
EKG: Not available.
PDMP:Buprenorphine-Nalox 8-2mg 28 filled in on 02/02/2024, 12/10/2023
Labs: Glucose�100, normal WBCs, creatinine, platelets, sodium, LFTs, urine tox�negative, CK, TFTs, ammonia�normal
Brain MRI wo [facility](04/26/2024)-normal
C spine MRI-no evidence of intrinsic or extrinsic myelopathy, T3-4 posterior central disc protrusion, with effacement of anterior subarachnoid space.
PMH: polysubstance addiction, JAYLYN
PSH: L arm ORIF
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
FH:no FH of tremors
All: NKDA
ROS:Constitutional: Negative. Negative for chills, fever and unexpected weight change.
HENT: Negative for ear pain, hearing loss, tinnitus and trouble swallowing.
Eyes: Negative. Negative for photophobia, pain and visual disturbance.
Respiratory: Negative for cough, choking and shortness of breath.
Cardiovascular: Negative for chest pain, palpitations and leg swelling.
Gastrointestinal: Negative for abdominal pain and vomiting.
Endocrine: Negative. Negative for cold intolerance.
Genitourinary: Negative for dysuria, flank pain and urgency.
Musculoskeletal: Positive for intermittent back pain
Skin: Negative for rash.
Allergic/Immunologic: Negative. Negative for immunocompromised state.
Neurological: Positive for hand tremor, imbalance.
Psychiatric/Behavioral: Negative for behavioral problems, confusion and hallucinations.
General: Well developed. In no acute distress.
Cardio: Regular rate and rhythm without murmur. Extremities are without cyanosis or edema.
Neuro:
Mental Status: Alert, oriented to person, place, and date. Impaired attention. Minimal eye contact. Good fund of knowledge. Follows complex requests across the midline. Comprehension, naming, and repetition intact.
Cranial Nerves: . Pupils are equally round and reactive to light. EOMs full. Visual yeager full to confrontation. No ptosis. No nystagmus. V1-V3 intact to light touch and pinprick bilaterally, symmetric. Face symmetric. Normal hearing AU.
The palate elevated well. SCMs and traps 5/5. Tongue midline. No dysarthria.
Motor: Increased motor tone with augmentation right greater than left. No pronator or arm drift. Strength 5/5 throughout. No clonus.
Reflexes: 2+ throughout the upper extremities and knees. Plantar responses flexor bilaterally.
Sensory: Normal proprioception at the toes
Coordination: Bilateral postural and action hand tremor. No dysmetria.
Gait: Normal stance, stride, reduced arm swing.
Assessment and Plan:
I. Worsening of chronic action hand tremor.
II. 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
III. T3-4 posterior central disc protrusion, with effacement of anterior subarachnoid space
IV. Opiate use disorder, severe in remission
-Fall precautions
-Avoid dopamine blocking medications
-nicotine patch
-May consider starting Inderal 60 mg daily for symptomatic tremor relief with close monitoring of mood symptoms
-Please check copper, ceruloplasmin, heavy metal screen
-Outpatient neurology follow-up in 1 to 2 weeks
I personally reviewed all radiology and labs along with past medical records pertinent to current medical problems. Total time spent in patient care is 60 minutes.
Thank you for allowing us to participate in the care of this patient. Please do not hesitate to contact us with any questions or concerns.
Objective Data
Vital Signs
Temp Pulse Resp BP Pulse Ox
36.7 C 90 14 139/95 97
04/26/24 07:30 04/26/24 07:30 04/26/24 07:30 04/26/24 07:30 04/26/24 07:30
Lab Results
04/25/24 18:28
04/25/24 18:28
Sodium 142 mmol/L (135-145) 04/25/24 18:28
Potassium 4.0 mmol/L (3.5-5.1) 04/25/24 18:28
BUN 16 mg/dl (9-20) 04/25/24 18:28
Glucose 100 mg/dl (70-99) H 04/25/24 18:28
Calcium 9.7 mg/dl (8.4-10.2) 04/25/24 18:28
Patient Allergies
No Known Allergies Allergy (Verified 04/25/24 18:22)
Vital Signs and Labs
-
Vital Signs and Labs:
Vital Signs
Temp Pulse Resp BP Pulse Ox
36.7 C 90 14 139/95 97
04/26/24 07:30 04/26/24 07:30 04/26/24 07:30 04/26/24 07:30 04/26/24 07:30
Lab Results
04/25/24 18:28
04/25/24 18:28
Sodium 142 mmol/L (135-145) 04/25/24 18:28
Potassium 4.0 mmol/L (3.5-5.1) 04/25/24 18:28
BUN 16 mg/dl (9-20) 04/25/24 18:28
Glucose 100 mg/dl (70-99) H 04/25/24 18:28
Calcium 9.7 mg/dl (8.4-10.2) 04/25/24 18:28
Medications
-
Medications:
Generic Name Dose Route Start Last Admin
Trade Name Freq PRN Reason Stop Dose Admin
Acetaminophen 650 mg 04/26/24 01:00
Acetaminophen 325 Mg Tablet PO 05/24/24 00:59
Q4HPRN PRN
mild pain/GARCÍA/temp> 100.4F
Bisacodyl 10 mg 04/26/24 01:00
Bisacodyl 10 Mg Rectal Suppository RECTAL 05/24/24 00:59
[id number] PRN
constipation
Enoxaparin Sodium 40 mg 04/26/24 18:00
Enoxaparin Sodium 40 Mg/0.4 Ml Syringe SC 05/24/24 17:59
QPM ROBERTO
Ibuprofen 400 mg 04/26/24 01:00
Ibuprofen 400 Mg Tablet PO 05/24/24 00:59
Q6HPRN PRN
mild pain
Polyethylene Glycol 17 grams 04/26/24 01:00
Polyethylene Glycol Powder 17 Grams Packet PO 05/24/24 00:59
DAILYPRN PRN
constipation
Quetiapine Fumarate 200 mg 04/26/24 22:00
Quetiapine 100 Mg Tablet PO 05/24/24 21:59
HS ROBERTO
Senna/Docusate Sodium 1 tablet 04/26/24 01:00
Docusate W/Senna (Kathie-Colace) Tablet PO 05/24/24 00:59
BIDPRN PRN
constipation
Sodium Chloride 0 flush 04/25/24 23:00
Sodium Chloride 0.9% (Flush) Syringe IV 05/23/24 22:59
PER PROTOCOL ROBERTO
Venlafaxine HCl 75 mg 04/26/24 08:00 04/26/24 07:50
Venlafaxine 75 Mg Extended Release Capsule PO 05/24/24 07:59 75 mg
DAILY ROBERTO Administration
Venlafaxine HCl 150 mg 04/26/24 08:00 04/26/24 07:50
Venlafaxine 150 Mg Extended Release Capsule PO 05/24/24 07:59 150 mg
DAILY ROBERTO Administration
Home Medications
-
Home Medications
quetiapine 200 mg tablet (Seroquel) 200 mg PO HS 04/25/24
venlafaxine 150 mg capsule,extended release 24 hr 150 mg PO DAILY 04/25/24
venlafaxine 75 mg capsule,extended release 24 hr 75 mg PO DAILY 04/25/24
[2024-04-26 09:50] LABS: Ammonia 25 umol/L (9-30)
[2024-04-26 10:46] LABS: Amphetamines Negative (Negative); Barbiturates Negative (Negative); Benzodiazepines Negative (Negative); Buprenorphine Negative (Negative); Cocaine Negative (Negative); Marijuana Negative (Negative); Methadone Negative (Negative); Methamphetamines Negative (Negative); Opiates Negative (Negative); Phencyclidine Negative (Negative); Tricyclic Antidepressants Negative (Negative)
[2024-04-26 10:51] LABS: Urine Albumin Negative (Neg - Trace); Urine Bilirubin Negative (Negative); Urine Character Clear (Clear); Urine Color Yellow; Urine Glucose Negative (Negative); Urine Ketone Negative (Negative); Urine Leukocyte Negative (Negative); Urine Nitrite Negative (Negative); Urine Occult Blood Negative (Negative); Urine Urobilinogen Negative (Neg - 1+)
[2024-04-26] MEDS: ATIVAN 1 MG PO (10:53)
--- NOTE | 2024-04-26 11:09 | W.PN.HOSP.TC ---
Addendum entered and electronically signed by Leodan Duffy DO 04/26/24 16:20:
Brain and cervical spine MRI unrevealing as to cause of tremor.
Suspect psychiatric induced tremors.
Medically stable for discharge home today with outpatient follow-up with Roseline Nicole for [facility].
Instructions provided to patient and his mother.
I spoke with Dr. Blum and she will ask Roseline Nicole to touch base with patient's mother tomorrow for follow-up appointment.
Original Note:
Today's Communication/Plan
-
Continue current care
Assessment / Plan
Assessment / Plan
Gen-AAOx3, NAD
HEENT-NC, AT, anicteric, clear oral mm
Neck-supple
CV-reg, no M, +S1/S2
Lungs-clear B/L
Abd-soft, NT, ND
Ext-no edema
Musculoskeletal-no cyanosis, clubbing
Skin-warm and dry
Neuro-grossly non-focal, mild bilateral upper extremity tremors
Psych-calm, cooperative
Tremors -involving upper extremities. Nonfocal neurologically. Workup in progress. Awaiting neurology and psychiatry input, MRI. Check CPK. Anxiety component likely contributing to tremors.
No recent medication changes. He was on antipsychotics which were discontinued several weeks ago prior to discharge from [facility].
Full code
Updated mother at the bedside.
Anticipated Discharge: Within 24 hours
Subjective/Interval History
-
Date of Service: April 26, 2024
Patient seen and examined. Feels less anxious today. Still with tremors.
Objective Data
-
Vital Signs:
Vital Signs
Temp Pulse Resp BP Pulse Ox
98.1 F 90 14 139/95 97
04/26/24 07:30 04/26/24 07:30 04/26/24 07:30 04/26/24 07:30 04/26/24 07:30
Review of Systems
-
History Source: Patient
All other systems: Reviewed and negative
[2024-04-26 11:10] LABS: Creatine Phosphokinase 95 U/L (55-170)
[2024-04-26 11:41] LABS: TSH Reflex To Free T4 0.64 uIU/ml (0.47-4.68)
--- NOTE | 2024-04-26 12:07 | CON.MD ---
Consultation - Medical
-
patient seen chart reviewed. mother at bedside. discussed w nursing. 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 he was admitted after an accidental fentanyl overdose. there were complications
(respiratory) and he was intubated for some time. he was encephalopathic for some time and there were ? as to whether he had some underlying neuro dysfunction given disconjugate gaze. in the end no causative dx was elucidated (the mri done at that
time noted only mild disconjugate gaze) and he was dced after a long hospital stay. he has had a very stressful year. there were other opiate overdoses both accidental and intentional (suicide attempt) the latter in january of 2024 ushering in a
round of psych hospitalizations at [facility] and the final one from which he was vt'ed after a 30 days stay at [facility]. he was during that stay at one point taking depakote and clozaril but these were changed to effexor and seroquel.
it is not exactly clear why. mom insists that the dep and clozaril worked better than current medications. patient did not seem so confident . the patient was admitted for tremor. he describes that the tremor was so intense that he could not
perform at his job. he is currently going to be seen by neuro and an mri is ordered. he denies depression. he is anxious. sleep not great. he is not suicidal. he denied auditory and visual hallucinations but mom interjected here and said she
'knows' he sees things that others do not see. when questioned patient said he had 'delusions'' i asked him to tell me about this and he said he feared others might hurt him. he has no thoughts of hurting others. current medications include
effexor xr 225 mg and seroquel 200 mg q hs.
past psych hx patient was hospitalized in the past year at [facility] and [facility]. he has hx psychosis w a/v hallucinations as well as depression and suicidality. he overdosed intentionally in the past year prior to hosp in january.
the patient was seen at [facility] for an intake on apr 25. at that time he was noted to give inconsistent answers to some of the questions that were asked prompting the interviewer to note that sometimes he seemed 'confused' he has taken depakote
clozaril and haldol in the past.
past medical hx patient is here bc c /o severe tremor of the upper extremities. he has hx aspiration penumonia after overdose. patient w hx orthopedic injury.
substance abuse hx opiate use disorder severe. starting when he was about 19 yo. says last use 6 mos ago. he was here for od attempt in january so it is actually less than six months ago. has been prescribed buprenorphine naloxone. hx meth
abuse ages 29 to 32[address] [facility] last use seven or nine months ago. smokes cigarettes
fh 'i don't know'
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 . parents supportive. patient has two kids ages 10 and 6 with whom he is in contract who live w their mother. he had a dui in 2021 and is still
dealing with this.
mse alert ox3 cooperative patient was quietly sitting in bed. his affect was rather blunted. mood seemed neutral. he admitted he felt 'paranoid' at times but was feeling less anxious and comfortable in hospital. he denied that he was seeing or
hearing things although mom felt he was at times seeing things. aver intelligence memory seemed fair but concentration may not be the best. insight judgment fair
dx ? schizoaffective disorder hx meth and opiate use disorder severe currently in remission
recommendations: continue w current medications currently as patient does feel they have helped. would await neuro consult and mri. it is unclear what is exactly diagnosis here. it is possible that patient's years of substance abuse have taken
their toll on his psychiatric condition,l cognitive function and well as neurological function. mom would like patient to be on clozaril. this is a very big commitment and patient needs to think about it in the context of living in a group home house
working blood and plasma laboratory assistant etc. have explained it would require ongoing bloodwork weekly for six months and that it is not without a serious set of ill effects. i would favor vraylar or cariprazine. suggested php at [facility] which is nine to three daily and
would provide close monitoring of his meds and therapy, but he said he needs to work and could not make that commitment. will see where we are in am after mri and neuro consult. .
--- NOTE | 2024-04-26 13:08 | CM ---
Addendum entered by Alise Franklin RN 04/26/24 13:16:
Correction: PCP is Swati Abad
Original Note:
Reviewed the chart notes and spoke with the patient and his mother at the bedside. The patient is admitted under observational status. The observation letter was provided and explained. The patient nor mother had any questions with regards to the
letter.
The patient is admitted for bilateral upper extremity weakness and tremors, behavioral changes. Patient reported he recently had a stay in an inpatient psych facility for about three months. The patient resides with his parents in a two story home
with two steps to enter. The patient reports no DME/VN/SNF in the past. The patient confirmed his pharmacy of choice is [facility] in the [facility]. The patient's PCP is Swati Stevens. CM continues to be available to patient/family and
is monitoring medical plan for needs at discharge.
Plan: Discharge to home when medically stable. No needs anticipated at this time.
[2024-04-26 15:10] VITALS: BP 131/98
--- NOTE | 2024-04-26 16:21 | W.DS.TRANS ---
DC Summary - Policewoman
-
Discharge Instructions:
Discharge Diagnosis/Procedures Tremors
Diet Regular
Activity As tolerated
Driving Restrictions As prior to admission
Bathing Restrictions None
Instructions:
Stand-Alone Forms:
Changes to Home Medications: No
Discharge Medications:
DC Medications w/original date entered in [employer]
quetiapine 200 mg tablet (Seroquel) 200 mg PO HS 04/25/24
venlafaxine 150 mg capsule,extended release 24 hr 150 mg PO DAILY 04/25/24
venlafaxine 75 mg capsule,extended release 24 hr 75 mg PO DAILY 04/25/24
Home Medication Changes
Pending Results: No
== END 2024-04-26 18:34 | disposition home or self-care (01) ==
LOC: 2 NORTH 23:55
PROVIDERS: Emergency Medicine; Psychiatry & Neurology Neurology; ADMITTING PHYSICIAN Internal Medicine; ATTENDING PHYSICIAN Hospitalist; EMERGENCY PHYSICIAN Emergency Medicine; OTHER PHYSICIAN Psychiatry & Neurology Psychiatry
DX: G20.C Parkinsonism, unspecified (principal); R53.1 Weakness; F41.9 Anxiety disorder, unspecified; F32.A Depression, unspecified; M54.9 Dorsalgia, unspecified; G89.29 Other chronic pain; R51.9 Headache, unspecified; F41.1 Generalized anxiety disorder; F17.200 Nicotine dependence, unspecified, uncomplicated; F29 Unspecified psychosis not due to a substance or known physiological condition; F11.10 Opioid abuse, uncomplicated; F15.10 Other stimulant abuse, uncomplicated; M51.24 Other intervertebral disc displacement, thoracic region; J35.2 Hypertrophy of adenoids; M48.02 Spinal stenosis, cervical region; M50.322 Other cervical disc degeneration at C5-C6 level
CPT/HCPCS: 70450; 70551; 72141; 80053; 80306; 81003; 82140; 82390; 82525; 82550; 84443; 85025; 99285; 99406; G0378